=== PATIENT | male | born 1985 | race American Indian/Alaskan Native ===

== ENCOUNTER 2020-01-10 04:06 | Emergency (ER) | payer SELFPAY ==
[2020-01-10 04:27] VITALS: BP 123/79
--- NOTE | 2020-01-10 09:18 | Emergency Department Report ---
Chief Complaint: Skin Rash Stated Complaint: SKIN RASH UNDER ARM Time Seen by Provider: 01/10/20 09:13 - HPI History of Present Illness: 34-year-old -Citizen Of [place] male presents to the emergency room complaining of a itchy rash under both arms x2 weeks. Patient reports in the past he had been placed on steroids and Bactrim. Patient has not followed up with any provider. Patient denies any pain no shortness of breath or chest pain. - Exam Vital Signs: Vital Signs 01/10/20 04:17 Temperature 98.1 F Pulse Rate 58 L Respiratory 18 Rate Blood Pressure 123/79 O2 Sat by Pulse 100 Oximetry Physical Exam: Alert and oriented x3 no acute distress nontoxic in appearance Bilateral underarms has a demarcated with shiny center clearance lesion. Nonerythematous nonedematous no lymphadenopathy. Same rash around the bellybutton. No discharge from the bellybutton. Ambulatory without difficulties MSE screening note: Focused history and physical exam performed. Due to findings the following was ordered: 34-year-old -Citizen Of [place] male presents to the emergency room complaining of a itchy rash under both arms x2 weeks. Patient reports in the past he had been placed on steroids and Bactrim. Patient has not followed up with any provider. Patient denies any pain no shortness of breath or chest pain. Rash appears to be a tinea discussed with patient he can try [id number] hydrocortisone and Lotrisone and to follow-up with a primary care provider. ED Disposition for MSE Disposition: Z- MED SCREENING EXAM-LEFT Is pt being admited?: No Does the pt Need Aspirin: No Condition: Stable Additional Instructions: You can try [id number] Lotrisone and hydrocortisone. Or follow-up with Dr. Mayela Hernandez in the morning his office opens at 830. Referrals: PRIMARY CAREMD [Primary Care Provider] - 3-5 Days PAUL FERRO MD [Staff Physician] - 3-5 Days
== END 2020-01-10 09:18 | disposition left against medical advice (07) ==
LOC: ED 04:06
DX: R21 Rash and other nonspecific skin eruption (principal); Z53.21 Procedure and treatment not carried out due to patient leaving prior to being seen by health care provider